=== PATIENT | male | born 1965 | race Caucasian/White ===

== ENCOUNTER 2017-05-10 17:51 | Emergency (ER) | payer OTHER ==
[~2017-05-10] VITALS: Ht 165.1 cm; Wt 53.5 kg
[2017-05-10 17:55] VITALS: Ht 165.1 cm; Wt 53.5 kg
[2017-05-10] MEDS ORDERED: KETOROLAC 30 MG INJ IV STA (18:09)
[2017-05-10] MEDS ORDERED: morphine 2 MG INJ IV STA ×2 (18:09→19:00)
[2017-05-10] MEDS ORDERED: ONDANSETRON 4 MG INJ IV STA (18:09)
--- NOTE | 2017-05-10 18:59 | RADRPT ---
PROCEDURE: Chest x-ray CLINICAL INDICATION: Chest pain TECHNIQUE: Chest single view COMPARISON: None FINDINGS: The heart is normal in size. The pulmonary vessels are normal in caliber. The lungs are clear. Th e costophrenic angles are sharp. The visualized bony thorax is unremarkable. IMPRESSION: No acute cardiopulmonary disease. RPTAT: HH .Dar Freitas MD, Date Time Electronically viewed and signed by .Dar Freitas MD, MD on 05/10/2017 18:59 .W/
--- NOTE | 2017-05-10 19:02 | RADRPT ---
PROCEDURE: CT head CLINICAL INDICATION: Left sided headache and numbness TECHNIQUE: Contiguous 2.5 mm axial images were obtained from the vertex to the skull base. No int ravenous contrast was administered. The calculated dose length product (DLP) = 720.23 mGy-cm. The CTDlvol = 43.16 mGy. One or more of the following dose reduction techniques were used: Automated e xposure control, adjustment of the mA and or KV according to patient size, or use of iterative recon struction technique. COMPARISON: None FINDINGS: There is no evidence of acute intracranial hemorrhage or acute territorial infarct. No mass or mass effect is seen on this noncontrast study. The ventricles and cisterns are normal in size and confi guration. The velazco-white matter differentiation is within normal limits. There is minimal mucosal c hanges in the ethmoid air cells. Remaining paranasal sinuses are clear. Bony calvarium is unremark able. IMPRESSION: Unremarkable unenhanced CT of the brain Minimal ethmoid sinus disease RPTAT: .Dar Freitas MD, Date Time Electronically viewed and signed by .Dar Freitas MD, on 05/10/2017 19:02 .W/
[2017-05-10 19:16] LABS: BASOPHILS % 0.5 % (0.0-2.0); EOSINOPHILS # 0.3 10^3/ul (0.0-0.5); EOSINOPHILS % 4.4 % (0.0-7.0); HEMATOCRIT 43.9 % (42.0-52.0); HEMOGLOBIN 15.2 g/dl (14.0-18.0); LYMPHOCYTES # 2.7 10^3/ul (0.8-2.9); LYMPHOCYTES % 35.5 % (15.0-51.0); MEAN CORPUSCULAR HEMOGLOBIN 30.8 pg (29.0-33.0); MEAN CORPUSCULAR HGB CONC 34.6 g/dl (32.0-37.0); MEAN CORPUSCULAR VOLUME 88.9 fl (82.0-101.0); MEAN PLATELET VOLUME 10.7 fl (7.4-10.4); MONOCYTE # 0.6 10^3/ul (0.3-0.9); MONOCYTES % 8.5 % (0.0-11.0); NEUTROPHIL # 3.9 10^3/ul (1.6-7.5); PLATELET COUNT 255 10^3/UL (140-415); RED BLOOD COUNT 4.94 10^6/ul (4.70-6.10); RED CELL DISTRIBUTION WIDTH 13.5 % (11.5-14.5); WHITE BLOOD COUNT 7.6 10^3/ul (4.8-10.8)
[2017-05-10 19:31] LABS: ADD UMIC YES; UR ASCORBIC ACID NEGATIVE (NEGATIVE); UR BILIRUBIN (Dip) NEGATIVE (NEGATIVE); UR BLOOD (Dip) 1+ mg/dL (NEGATIVE); UR CLARITY CLEAR (CLEAR); UR COLOR YELLOW (YELLOW); UR GLUCOSE (Dip) NEGATIVE (NEGATIVE); UR KETONES (Dip) NEGATIVE (NEGATIVE); UR LEUKOCYTE ESTERASE (Dip) NEGATIVE Leu/ul (NEGATIVE); UR NITRITE (Dip) NEGATIVE (NEGATIVE); UR RBC 0 /HPF (0-5); UR SPECIFIC GRAVITY (Dip) 1.018 (1.003-1.030); UR TOTAL PROTEIN (Dip) NEGATIVE (NEGATIVE); UR UROBILINOGEN (Dip) NEGATIVE (NEGATIVE)
[2017-05-10 19:32] LABS: INR 0.93; PROTIME 12.5 Sec (12.2-14.2)
[2017-05-10 19:33] LABS: PARTIAL THROMBOPLASTIN TIME 33.2 Sec (25.0-35.0)
[2017-05-10 19:41] LABS: ALANINE AMINOTRANSFERASE 34 IU/L (13-69); ALBUMIN 4.4 g/dl (3.3-4.9); ALBUMIN/GLOBULIN RATIO 1.33; ALKALINE PHOSPHATASE 81 IU/L (42-121); ANION GAP 18 (8-16); ASPARTATE AMINO TRANSFERASE 22 IU/L (15-46); BILIRUBIN,INDIRECT 0.3 mg/dl (0-1.1); BILIRUBIN,TOTAL 0.3 mg/dl (0.2-1.3); BLOOD UREA NITROGEN 13 mg/dl (7-20); CALCIUM 9.5 mg/dl (8.4-10.2); CARBON DIOXIDE 27 mmol/L (21-31); CHLORIDE 102 mmol/L (97-110); CREATINE KINASE 50 IU/L (23-200); CREATININE 0.77 mg/dl (0.61-1.24); GLUCOSE 84 mg/dl (70-220); POTASSIUM 3.7 mmol/L (3.5-5.1); SODIUM 143 mmol/L (135-144); TOTAL PROTEIN 7.7 g/dl (6.1-8.1)
[2017-05-10] MEDS ORDERED: OMEP40CA6 PO (19:47)
[2017-05-10 19:52] LABS: B-TYPE NATRIURETIC PEPTIDE 38 PG/ML (0-125)
[2017-05-10 19:56] LABS: CK-MB 0.48 ng/ml (0.0-2.4); TROPONIN-I < 0.012 ng/ml (0.00-0.12)
--- NOTE | 2017-05-10 20:00 | ERD ---
ER Documentation Chief Complaint Date/Time DATE: 05/10/17 TIME: 19:54 Chief Complaint Complains of headache and neck pain that radiates to the left arm HPI This is a very pleasant 51-year-old male with no past medical history that presents to the emergency department complaining of a headache for the past 2 weeks. The patient indicates that the headache is localized to the left side of his head. He is also complaining of left-sided facial pain and radiation of the pain to the patient's left side of his neck and left arm. He denies any chest pressure that radiates to the back or jaw. He has had no shortness of breath at rest or exertion. He denies any recent head trauma. He is also complaining of tinnitus and left ear pain has been present for the past 2 weeks. He had rhinorrhea. He denies a productive or nonproductive cough. He has had no recent travel. He did not take any analgesic medication prior to arrival. He denies any changes in vision and did not wear contacts or glasses. He states this is not the worst headache of his life. He also states he has had no fevers no shaking no chills. ROS All systems reviewed and are negative except as per history of present illness. Medications Home Meds Reported Medications Omeprazole* (Omeprazole*) 40 Mg Capsule., 40 MG PO DAILY, #30 CAP 05/10/17 Allergies Allergies: Coded Allergies: No Known Allergy (Unverified , 05/10/17) PMhx/Soc History of Surgery: Yes (APPENDECTOMY) Anesthesia Reaction: No Hx Neurological Disorder: No Hx Respiratory Disorders: No Hx Cardiac Disorders: No Hx Psychiatric Problems: No Hx Miscellaneous Medical Probl: Yes (GERD) Hx Alcohol Use: No Hx Substance Use: No Hx Tobacco Use: No Smoking Status: Never smoker Physical Exam Vitals Vital Signs Date Time Temp Pulse Resp B/P Pulse Ox O2 Delivery O2 Flow Rate FiO2 05/10/17 18:47 98.2 57 20 107/78 100 Room Air 05/10/17 17:55 97.8 63 20 124/76 100 Physical Exam Constitutional:Well-developed. Well-nourished. HEENT:Normocephalic. Atraumatic.Pupils were equal round reactive to light. Moist mucous membranes.No tonsillar exudates. Funduscopy exam showed sharp optic disc bilaterally venous pulsations are present bulging erythremia of the left tympanic membrane with no postauricular tenderness bilaterally no tenderness with manipulation of the left auricle. Neck: No nuchal rigidity. No lymphadenopathy. No posterior cervical spine tenderness or step-offs. No torticollis Respiratory: Not using accessory muscles of respiration.Lungs were clear to auscultation bilaterally. No rhonchi. No rales. No wheezing. Cardiovascular: Regular rate regular rhythm.No murmurs. No rubs were appreciated.S1, S2 normal. Distal pulses are palpable 2+ bilaterally. GI: Abdomen was soft. Nontender. Non Distended. No pulsatile abdominal masses or bruits. No rebound. No guarding. Bowel sounds were present and normal. Muscle skeletal: Full range of motion of both the upper and lower extremities bilaterally.Normal muscle tone.No assymetrical calf tenderness or swelling. Skin: No petechia, no purpura. No lesions on the palms or the soles of the feet. No maculopapular rash. NEURO: Patient was alert, awake, orientated x3.No facial droop. Gait observed and normal with no ataxia.Speech had regular rate and rhythm. No focal neurological deficits. No ptosis. No facial droop Result Diagram: 05/10/17181405/10/171814 Results 24 hrs Laboratory Tests Test 05/10/17 18:15 05/10/17 18:45 White Blood Count 7.610^3/ul Red Blood Count 4.9410^6/ul Hemoglobin 15.2g/dl Hematocrit 43.9% Mean Corpuscular Volume 88.9fl Mean Corpuscular Hemoglobin 30.8pg Mean Corpuscular Hemoglobin Concent 34.6g/dl Red Cell Distribution Width 13.5% Platelet Count 17330^3/UL Mean Platelet Volume 10.7fl Neutrophils % 51.0% Lymphocytes % 35.5% Monocytes % 8.5% Eosinophils % 4.4% Basophils % 0.5% Nucleated Red Blood Cells % 0.0/100WBC Neutrophils # 3.910^3/ul Lymphocytes # 2.710^3/ul Monocytes # 0.610^3/ul Eosinophils # 0.310^3/ul Basophils # 0.010^3/ul Nucleated Red Blood Cells # 0.010^3/ul Prothrombin Time 12.5Sec Prothrombin Time Ratio 1.0 INR International Normalized Ratio 0.93 Activated Partial Thromboplast Time 33.2Sec Sodium Level 143mmol/L Potassium Level 3.7mmol/L Chloride Level 102mmol/L Carbon Dioxide Level 27mmol/L Anion Gap 18 Blood Urea Nitrogen 13mg/dl Creatinine 0.77mg/dl Glucose Level 84mg/dl Calcium Level 9.5mg/dl Total Bilirubin 0.3mg/dl Direct Bilirubin 0.00mg/dl Indirect Bilirubin 0.3mg/dl Aspartate Amino Transf (AST/SGOT) 22IU/L Alanine Aminotransferase (ALT/SGPT) 34IU/L Alkaline Phosphatase 81IU/L Creatine Kinase 50IU/L Creatine Kinase Index Pending Creatinine Kinase MB (Mass) Pending Troponin I Pending B-Type Natriuretic Peptide Pending Total Protein 7.7g/dl Albumin 4.4g/dl Globulin 3.30g/dl Albumin/Globulin Ratio 1.33 Lipase 53U/L Urine Color YELLOW Urine Clarity CLEAR Urine pH 5.0 Urine Specific [place] 1.018 Urine Ketones NEGATIVEmg/dL Urine Nitrite NEGATIVEmg/dL Urine Bilirubin NEGATIVEmg/dL Urine Urobilinogen NEGATIVEmg/dL Urine Leukocyte Esterase NEGATIVELeu/ul Urine Microscopic RBC 0/HPF Urine Microscopic WBC 1/HPF Urine Hemoglobin 1+mg/dL Urine Glucose NEGATIVEmg/dL Urine Total Protein NEGATIVEmg/dl Current Medications Medications (Trade) Dose Ordered Sig/Yina Route PRN Reason Start Time Stop Time Status Last Admin Dose Admin Morphine Sulfate (morphine) 2 mg ONCE STAT IV 05/10/17 18:09 05/10/17 18:10 DC 05/10/17 18:30 Ondansetron HCl (Zofran Inj) 4 mg ONCE STAT IV 05/10/17 18:09 05/10/17 18:10 DC 05/10/17 18:30 Ketorolac Tromethamine (Toradol) 30 mg ONCE STAT IV 05/10/17 18:09 05/10/17 18:10 DC 05/10/17 18:30 Morphine Sulfate (morphine) 2 mg ONCE STAT IV 05/10/17 19:00 05/10/17 19:01 DC 05/10/17 19:05 Procedures/[facility] The patient presented to the emergency department with a subacute headache that began within weeks to months of onset. My differential diagnosis included but was not limited to chronic subdural hematoma, brain tumor, brain abscess, chronic sinusitis, temporal arteritis, temporomandibular joint syndrome, psuedotumor cerebri, glaucoma, migrane, HTN, intracranial hemorrhage or cerebral ischemia. This was not the patients worse headache of their life. The patient had a complete neurologic and fundoscopic exam performed by myself that was normal with no focal neurological deficits or retinal hemorrhage. The patient stated this headache was not severe or distinct from other headaches and the history with the physical exam findings did not likely suggest SAH. Therefore, I did not feel it was clinically necessary to perform a lumbar puncture and CSF analysis. I did obtain a CT scan of the patient's head and there is no evidence of acute intracerebral hemorrhage mass-effect or midline shift. There was physical exam findings suggestive of sinusitis. Given the patient's physical exam findings I was also concerned with labyrinthitis. The patient received intravenous morphine Zofran and Toradol with complete resolution of his pain. He did not have any physical exam findings at this time to suggest temporal arteritis or CVA. The patient was discharged home in fair condition. They were instructed to return to the emergency department at any time if there was any worsening of their condition. The patient stated they would follow up with their PCP in the next 24-48 hours to initiate a suitable medication regimen under the care of their PCP as well as to allow their PCP to monitor any drug reactions. The patient was discharged home with prescriptions after they gave informed consent to the new medication. They were also fully informed by myself on the adverse effects and adverse drug interactions in order to provide adequate safeguards to prevent possible adverse reactions to medications. She will go home with amoxicillin Alsip and Motrin for analgesic control. Departure Diagnosis: Primary Impression: Labyrinthitis of left ear Condition: CHRISTIANO Gong May 10, 2017 20:00
[2017-05-10] MEDS ORDERED: DOCU-144 PO (20:15)
[2017-05-10] MEDS ORDERED: AMOX1TAB10 PO (20:15)
[2017-05-10] MEDS ORDERED: HYDR-906 PO (20:15)
[2017-05-10 20:35] VITALS: BP 133/86; PULSE 56; RESP 18; TEMP 98.2
== END 2017-05-10 20:45 | disposition home or self-care (01) ==
LOC: E/R 17:51
DX: H83.02 Labyrinthitis, left ear (principal); R40.2252 Coma scale, best verbal response, oriented, at arrival to emergency department; R07.9 Chest pain, unspecified
CPT/HCPCS: 70450; 71010; 80053; 81001; 82550; 82553; 83690; 83880; 84484; 85025; 85610; 85730; 93005; 96374; 96375; 96376; J1885; J2270; J2405; Z7502

== ENCOUNTER 2017-09-02 06:01 | Day surgery (SDC) | payer OTHER ==
[~2017-09-02] VITALS: Ht 152.4 cm; Wt 56.0 kg
[~2017-09-02 06:01] MED LIST: AMOX1TAB10 PO; DOCU-144 PO; HYDR-906 PO; OMEP40CA6 PO
[2017-09-02 06:26] VITALS: Ht 152.4 cm; Wt 56.0 kg
[2017-09-02 07:01] VITALS: BP 113/72; PULSE 45; RESP 20
--- NOTE | 2017-09-02 07:39 | OPPN ---
Date/Time of Note Date/Time of Note DATE: 09/02/17 TIME: 07:38 Operative Report Preoperative Diagnosis Abdominal pain Chronic heartburn Postoperative Diagnosis Hiatal hernia Gastroesophageal reflux disease Gastritis with erosions Operation/Procedure Performed Esophagogastroduodenoscopy and biopsy Surgeon see signature line data analysis assistant None Anesthesia: moderate sedation Estimated blood loss: none Transfusion Required none Specimen Gastric mucosal biopsy Grafts/Implants none Complications none ROSIO PERKINS MD Sep 02, 2017 07:39
[2017-09-02] MEDS ORDERED: MIDAZOLAM 1 MG/ML 2 ML INJ ONE (07:42)
[2017-09-02] MEDS ORDERED: FENTAnyl 50 MCG/ML VIAL ONE (07:42)
[2017-09-02 08:01] VITALS: BP 109/69; RESP 20
--- NOTE | 2017-09-02 12:24 | GILP ---
DATE OF PROCEDURE: 09/02/2017 NAME OF PROCEDURE: Esophagogastroduodenoscopy and biopsy. SURGEON: Rosio Perkins MD PREOPERATIVE DIAGNOSES: 1. Abdominal pain. 2. Chronic heartburn. POSTOPERATIVE DIAGNOSES: 1. Hiatal hernia. 2. Gastroesophageal reflux disease. 3. Gastritis with erosions. 4. Gastric mucosal biopsies were taken for Helicobacter pylori test. INDICATION FOR THE PROCEDURE: Mr. Lazarus Salmeron is a 51-year-old male patient who had upper abdomina l pain and chronic heartburn, not responding to therapy. The patient was scheduled for endoscopic e xamination for further evaluation. The procedure and possible complications were well explained to the patient. The patient understood and consented to the procedure. DESCRIPTION OF PROCEDURE: Under the influence of fentanyl and Versed, the gastroscope was carefully introduced into the esophagus and under direct vision, it was advanced to the stomach and through t he pylorus into the duodenal bulb and descending duodenum. FINDINGS: ESOPHAGUS: The patient had hiatal hernia and gastroesophageal reflux disease. STOMACH: He had gastritis with erosions. Gastric mucosal biopsies were taken for H. pylori test. Duodenum was normal. He tolerated the procedure very well and there was no complication from the procedure. At the end o f the procedure, he was awake with stable vital signs and he was discharged home to the care of his family. IMPRESSION: Please see postoperative diagnoses. PLAN: 1. Pantoprazole 40 mg p.o. q.a.m. 2. Zantac 300 mg p.o. at bedtime. 3. Await H. pylori test report. Dictated By: ROSIO PERKINS MD GD/SHRUTHI Conf#: [id number] DID#: [id number] CC: ROSIO PERKINS MD;*EndCC*
== END 2017-09-02 17:20 | disposition home or self-care (01) ==
LOC: GIL 06:01
PROVIDERS: ATTEND Internal Medicine Gastroenterology
DX: K44.9 Diaphragmatic hernia without obstruction or gangrene (principal); K21.9 Gastro-esophageal reflux disease without esophagitis; K29.60 Other gastritis without bleeding
CPT/HCPCS: 43239; 87081; J2250; J3010; Z7610